=== PATIENT | female | born 1960 | race Hispanic/Latino ===

== ENCOUNTER 2018-07-19 02:11 | Emergency (ER) | payer BC ==
[~2018-07-19] VITALS: Ht 157.5 cm; Wt 72.7 kg
[2018-07-19 03:32] LABS: IMMATURE GRANULOCYTES 0.6 % (0.0-5.0); MEAN CELL VOLUME 82.3 fL CALC (80.0-100.0); MEAN CORPUSCULAR HGB 24.7 pG CALC (26.0-32.0); MEAN CORPUSCULAR HGB CONC 30.1 g/L CALC (32.0-36.0); NEUT# 3.72 thou/uL (2.00-7.15); RED BLOOD COUNT 1.98 mill/uL (4.20-5.60)
[2018-07-19 03:38] LABS: HEMATOCRIT 16.3 % (37.0-47.0); HEMOGLOBIN 4.9 g/dl (12.0-16.0)
[2018-07-19 03:39] LABS: ALBUMIN 3.1 g/dL (3.2-5.0); ALKALINE PHOSPHATASE 100 u/l (38-126); ANION GAP 21 (6-22 (CALC)); BILIRUBIN, TOTAL 0.9 mg/dL (0.0-1.4); BUN 22 mg/dL (7-17); BUN/CREATININE RATIO 52 (12-20 (CALC)); CARBON DIOXIDE 26 mmol/l (22-30); CHLORIDE 91 mmol/l (95-108); CREATININE 0.4 mg/dL (0.5-1.0); GFR > 60 ML/MIN (>=60 (CALC)); GFR FOR AFR.AMER. > 60 ML/MIN (>=60 (CALC)); POTASSIUM 3.2 mmol/l (3.5-5.1); SGOT/AST 36 u/l (14-36); SODIUM 135 mmol/l (137-146); TOTAL PROTEIN 5.9 g/dL (6.3-8.2)
[2018-07-19 03:51] LABS: MYOGLOBIN 28 ng/mL (0 - 62)
[2018-07-19 04:27] VITALS: BP 116/58
[2018-07-19] MEDS ORDERED: GLIMEPIRIDE2 MG PO (04:38)
[2018-07-19] MEDS ORDERED: METFORMIN HCL1000 MG PO (04:39)
[2018-07-19] MEDS ORDERED: LOPRESSOR25 M1 PO (04:39)
[2018-07-19] MEDS ORDERED: HYDROCHLOROT12.5 M1 PO (04:40)
[2018-07-19] MEDS ORDERED: LISINOPRIL40 MG PO (04:40)
[2018-07-19 04:48] VITALS: BP 101/50
[2018-07-19 05:32] VITALS: BP 98/53
[2018-07-19 06:04] VITALS: BP 106/58
== END 2018-07-19 06:10 | disposition short-term general hospital (02) | DRG 379 ==
LOC: ED 02:11
PROVIDERS: Family Medicine
PROC: 30233N1 Transfusion of Nonautologous Red Blood Cells into Peripheral Vein, Percutaneous Approach (ICD-10-PCS; principal; 2018-07-19)
DX: K92.2 Gastrointestinal hemorrhage, unspecified (principal); D50.0 Iron deficiency anemia secondary to blood loss (chronic); E11.9 Type 2 diabetes mellitus without complications; Z79.84 Long term (current) use of oral hypoglycemic drugs
CPT/HCPCS: P9016; S0164